=== PATIENT | female | born 1965 | race Hispanic/Latino ===

== ENCOUNTER 2020-10-06 11:54 | Emergency (ER) | payer OTHER ==
[~2020-10-06] VITALS: Ht 149.9 cm; Wt 72.6 kg
[~2020-10-06 11:54] MED LIST: ACYCLOVIR400 MG PO; HYDROCHLOROTHIA25 MG PO; ISONIAZID300 MG PO; LISINOPRIL20 MG PO; NORCO 5-325 TA1 EACH PO; OMEPRAZOLE20 MG PO; POLYOX WSR-3011 GM MISC; VIT B-6
[2020-10-06] MEDS ORDERED: LEVOTHYROXINE50 MCG PO (12:42)
[2020-10-06] MEDS ORDERED: HYDROCODON-ACE1 EA10 PO (17:52)
== END 2020-10-06 18:02 | disposition home or self-care (01) ==
LOC: ED 11:54
DX: S39.011A Strain of muscle, fascia and tendon of abdomen, initial encounter (principal); X58.XXXA Exposure to other specified factors, initial encounter; I10 Essential (primary) hypertension; Z79.899 Other long term (current) drug therapy
CPT/HCPCS: 74177; 80053; 81001; 83690; 84703; 85025; 96375; 99284-25; J1170; J1885; J2405; J7030

== ENCOUNTER 2022-07-16 06:28 | Day surgery (SDC) | payer OTHER ==
[~2022-07-16] VITALS: Ht 160 cm; Wt 77.8 kg
[~2022-07-16 06:28] MED LIST changes: +HYDROCODON-ACE1 EA10 PO; +LEVOTHYROXINE50 MCG PO; +LOSARTAN-HCTZ1 EAC2 PO; +MELOXICAM15 MG PO; +METFORMIN HCL500 MG PO; +ONDANSETRON ODT8 MG PO; +SIMVASTATIN20 MG PO; +ZOCOR40 MG PO
[2022-07-16 06:47] VITALS: BP 152/81
--- NOTE | 2022-07-16 07:54 | NUR ---
07/16/22 0754 Capri Azevedo 0750-PATIENT ARRIVED TO PACU ON 2L NC RR EVEN. PATIENT DROWSY EYES OPEN HOB ELEVATED. DENIES PAIN OR NAUSEA. DOZES BACK TO SLEEP. ABDOMEN SOFT. IVF INFUSING.
--- NOTE | 2022-07-16 08:37 | NUR ---
PT DOES NOT SPEAK GE[place]GIAN, FAMILY PRESENT INFORM PT. PT HAS HAD EGD BEFORE, FAMILY WILL REMAIN. GAVE ENCOURAGEMENT AND BLESSING
[2022-07-16 08:38] VITALS: BP 131/64
--- NOTE | 2022-07-16 09:04 | OR ---
[facility] [address] [place], [place] [address] Signed DATE OF OPERATION: 07/16/2022 SURGEON: Demond Cunningham MD PREOPERATIVE DIAGNOSES: 1. Chronic epigastric and right upper quadrant abdominal pain. 2. Chronic bloating. 3. Small hiatal hernia. 4. History of mild gastritis. POSTOPERATIVE DIAGNOSES: 1. Minimal gastroduodenitis. 2. Minimal hiatal hernia. PROCEDURE: EGD with CLOtest and biopsies of the duodenum, pyloric bulb and antrum. ESTIMATED BLOOD LOSS: None. INDICATIONS: Enriqueta is a 56-year-old prediabetic lady asked to see me for followup upper endoscopy. I met her back in 2016 at the age of 50. She basically had the same symptoms with epigastric and right upper quadrant abdominal pain and bloating. The upper endoscopy at that time showed a very small hiatal hernia and some mild gastritis. A colonoscopy at that time was unremarkable. Her gallbladder ultrasound showed some fatty liver, but otherwise was unremarkable. HIDA scan showed her gallbladder ejection fraction was below 26%. Injection of the CCK reproduced her symptoms. We removed her gallbladder in 2017 at the age of 51. Her pathology report came back with chronic cholecystitis and cholesterolosis. More recently, she seems to have recurrent symptoms. CT scan last year showed a fatty liver and a very tiny subcapsular lesion. This was followed by a recent MRI of her liver which confirmed a very tiny 4 mm subcapsular lesion along with the fatty liver. She did ask me quite a bit about that little lesion and I explained to her it appears to be quite benign. Given her current course and persistent symptoms, she was asked to see me for a followup upper endoscopy. She brings her family with her and we had an negotiations director on our phone line to help us in the office. We had reviewed upper endoscopy together. She understands there is risk including, but not limited to gas bloating, crampy abdominal pain, bleeding, perforation requiring surgery, and missed diagnosis. She also recalls the need for the Versed and fentanyl for IV sedation. She had done well with that previously. She had expressed Electronically Signed By: DEMOND CUNNINGHAM MD 07/16/22 0904 PATIENT NAME: ENRIQUETA KOHLER OPERATIVE REPORT DATE OF : 65 REPORT #: [id number] PHYSICIAN: DEMOND CUNNINGHAM MD PCP: CARRIE BROWN PAC REPORT IS CONFIDENTIAL AND NOT TO BE RELEASED WITHOUT AUTHORIZATION [facility] [address] [place], [place] [address] Signed understanding and wished to proceed. PROCEDURE NOTE: Enriqueta was taken into our endoscopy suite and placed in a supine semi-recumbent position. The posterior oropharynx was anesthetized with Hurricaine spray. A bite block was utilized for the case. She was given 3 mg of Versed and 100 mcg of fentanyl to cover the case. The adult gastroscope had been introduced and advanced under direct visualization of the camera out into the duodenum without difficulty. Her duodenum appeared quite healthy. We went ahead and took a biopsy of the duodenum because of her epigastric abdominal pain. She had just a little irritation in her pyloric channel in her stomach. This was very similar to what we saw in 2016. We went ahead and took a biopsy from the pyloric bulb as well as the antrum for pathologic review. There were no ulcerations. We took an additional biopsy of the antrum for CLOtest, although it was negative in 2016. Upon retroflexion of the scope, we can see very little if any hiatal hernia. Just a little bit of the stomach is being pulled in on one side. The scope was withdrawn up through the area of the GE junction, which was compliant without stricture. There was no gastric or esophageal varices. Her Z-line is about 32 cm from her incisors. There was no Mondragon's mucosa. There was no distal esophagitis. The middle and upper esophagus were unremarkable. After this, the gas was suctioned out and the gastroscope removed. Enriqueta tolerated the procedure quite well. RECOMMENDATIONS: I will see Enriqueta back in my office in 7 to 14 days to review her results. She likely has some level of mild chronic gastritis associated with her prediabetes and her anxiety. Demond Cunningham MD ALB/MODL /[id number] cc: MD Carrie Ritchie PA-C Electronically Signed By: DEMOND CUNNINGHAM MD 07/16/22 0904 PATIENT NAME: ENRIQUETA KOHLER OPERATIVE REPORT DATE OF : 65 REPORT #: [id number] PHYSICIAN: DEMNOD CUNNINGHAM MD PCP: CARRIE BROWN PAC REPORT IS CONFIDENTIAL AND NOT TO BE RELEASED WITHOUT AUTHORIZATION [address] [address] Signed Copies: DEMOND CUNNINGHAM MD, ERIKA PAC ~ Electronically Signed By: DEMOND CUNNINGHAM MD 07/16/22 0904 PATIENT NAME: ENRIQUETA KOHLER OPERATIVE REPORT DATE OF : 65 REPORT #: [id number] PHYSICIAN: DEMOND CUNNINGHAM MD PCP: CARRIE BROWN REPORT IS CONFIDENTIAL AND NOT TO BE RELEASED WITHOUT AUTHORIZATION
--- NOTE | 2022-07-22 09:33 | PATH ---
[facility] [address] [place], [place] [address] Signed SPECIMEN(S): A DUODENAL BIOPSY SPECIMEN(S): B DUODENAL BULB BIOPSY SPECIMEN(S): C ANTRUM/PYLORUS BIOPSY SPECIMEN SOURCE: A. DUODENAL BIOPSY B. DUODENAL BULB BIOPSY C. ANTRUM/PYLORUS BIOPSY CLINICAL HISTORY: Bloating, abdominal pain, hiatal hernia FINAL PATHOLOGIC DIAGNOSIS: A. Duodenum, biopsy: - No significant histopathology. B. Duodenal bulb, biopsy: - No significant histopathology. C. Stomach, antrum/pylorus, biopsy: - Mild superficial chronic gastritis. COMMENT: Regarding specimens A and B, the sections from the duodenal biopsies show portions of duodenal mucosa with long finger-like villi. There is no villous atrophy, crypt hyperplasia or intraepithelial lymphocytosis, making a diagnosis of celiac disease unlikely. There is no evidence of peptic duodenitis, microorganisms, abnormal infiltrates or neoplasia. Regarding specimen C, the sections through the gastric biopsy show an architecturally normal gastric mucosa. The superficial lamina propria contains an increased number of lymphocytes and plasma cells. A careful search is made for H. pylori and none are identified on the HE-stained sections. There is no evidence of intestinal metaplasia or abnormal infiltrates. BHARGAV:em:C2NR MICROSCOPIC EXAMINATION: Histologic sections of all submitted blocks are examined by light microscopy. These findings, together with the gross examination, support the pathologic diagnosis. GROSS DESCRIPTION: PATIENT NAME: VALVERDE SHERYL PRUETT PATHOLOGY DATE OF : 65 REPORT #: [id number] PHYSICIAN: SONAL WOODWARD PCP: ASHLEY BROWN PAC REPORT IS CONFIDENTIAL AND NOT TO BE RELEASED WITHOUT AUTHORIZATION [facility] [address] [place], [place] [address] Signed A. The specimen, labeled and designated "Cole Pruett Andressa, 1," and designated on the requisition "duodenum biopsy," is received in formalin and consists of one hernandez soft tissue fragment that is 0.6 cm in greatest dimension. The specimen is entirely submitted in (A1). B. The specimen, labeled and designated "Cole Pruett Andressa, 2," and designated on the requisition "duodenum bulb biopsy," is received in formalin and consists of one hernandez soft tissue fragment that is 0.7 cm in greatest dimension. The specimen is entirely submitted in (B1). C. The specimen, labeled and designated "Cole Pruett, Andressa, 3," and designated on the requisition "antrum/pylorus biopsy," is received in formalin and consists of one hernandez soft tissue fragment that is 0.5 cm in greatest dimension. The specimen is entirely submitted in (C1). FB (under the direct supervision of a pathologist) The Gross Description was prepared using a voice recognition system. The report was reviewed for accuracy; however, sound-alike word errors, addition and/or deletions may occur. If there is any question about this report, please contact Client Services. PERFORMING LABORATORY: The technical component was performed by [facility], [address] [place] [id number] (CLIA# [id number]). The professional interpretation was performed by [facility], [facility], [address] [place] [address] (CLIA#: [id number]). Diagnostician: Bertin Herndon MD Pathologist Electronically Signed 07/22/2022 Copies: ~ PATIENT NAME: SHERYL KOHLER PATHOLOGY DATE OF : 65 REPORT #: [id number] PHYSICIAN: SONAL WOODWARD PCP: ASHLEY BROWN PAC REPORT IS CONFIDENTIAL AND NOT TO BE RELEASED WITHOUT AUTHORIZATION
== END 2022-07-16 08:45 | disposition home or self-care (01) ==
LOC: DS 06:28 → OPS 06:28 → DS 07:30 → OPS 07:30
PROVIDERS: ATTEND Colon & Rectal Surgery
DX: K29.50 Unspecified chronic gastritis without bleeding (principal); K44.9 Diaphragmatic hernia without obstruction or gangrene; I10 Essential (primary) hypertension; F41.9 Anxiety disorder, unspecified; E78.5 Hyperlipidemia, unspecified; R73.03 Prediabetes; Z88.8 Allergy status to other drugs, medicaments and biological substances; Z79.899 Other long term (current) drug therapy
CPT/HCPCS: 36415; 87077; 88305; G0500; J2250; J3010; J7121